=== PATIENT | male | born 1990 | race Caucasian/White ===

== ENCOUNTER 2020-10-26 01:24 | Emergency (ER) | payer OTHER ==
[2020-10-26 01:35] VITALS: RESP 18
--- NOTE | 2020-10-26 06:03 | ED ---
Overdose HPI - General Chief Complaint: Overdose Stated Complaint: Overdose Time Seen by Provider: 10/26/20 01:27 Source: patient, police, EMS Mode of arrival: EMS Limitations: no limitations - History of Present Illness Initial Comments: This patient is 22-year-old man who presents to have evaluation for axonal heroin overdose. Patient states that he was using tonight and must have taken too much heroin. Patient did have friend present who phoned EMS and also Narcan was given. The patient denies complaints now. Patient denies any depression or suicidal ideation. MD Complaint: accidental overdose -: minutes(s) Intent: other How Overdose Was Discovered: family/friend present at time Context: Accidental Overdose: wanted to get high - Related Data Allergies Allergy/AdvReac Type Severity Reaction Status Date / Time amoxicillin [From Augmentin] Allergy Unknown Verified 10/26/20 01:36 cefaclor [From Ceclor] Allergy Unknown Verified 10/26/20 01:36 clavulanic acid Allergy Unknown Verified 10/26/20 01:36 [From Augmentin] Review of Systems ROS Statement: Those systems with pertinent positive or pertinent negative responses have been documented in the HPI. ROS Other: All systems not noted in ROS Statement are negative. Constitutional: Denies: fever, chills Respiratory: Denies: cough, dyspnea Cardiovascular: Denies: chest pain, palpitations Gastrointestinal: Denies: abdominal pain, vomiting, diarrhea Musculoskeletal: Denies: back pain Skin: Denies: rash Neurological: Denies: headache, weakness, numbness Psychiatric: Denies: depression, suicidal thoughts Past Medical History Past Medical History: No Reported History History of Any Multi-Drug Resistant Organisms: None Reported Past Surgical History: No Surgical Hx Reported Past Psychological History: Anxiety Smoking Status: Current every day smoker, Vaper Past Alcohol Use History: None Reported Past Drug Use History: Heroin General Exam Limitations: no limitations General appearance: alert, in no apparent distress Head exam: Present: atraumatic, normocephalic Eye exam: Present: normal appearance. Absent: scleral icterus, conjunctival injection Respiratory exam: Present: normal lung sounds bilaterally. Absent: respiratory distress, wheezes, rales, rhonchi, stridor Cardiovascular Exam: Present: regular rate, normal rhythm, normal heart sounds. Absent: systolic murmur, diastolic murmur, rubs, gallop GI/Abdominal exam: Present: soft. Absent: distended, tenderness, guarding, rebound, rigid, mass Extremities exam: Present: normal inspection, normal capillary refill Neurological exam: Present: alert Psychiatric exam: Absent: depressed, suicidal ideation Skin exam: Present: warm, dry, intact, normal color. Absent: rash Course Vital Signs 10/26/20 10/26/20 10/26/20 01:27 02:00 04:47 Temperature 98 F Pulse Rate 80 75 Respiratory 18 18 Rate Blood Pressure 125/93 123/73 O2 Sat by Pulse 100 97 98 Oximetry Medical Decision Making - Medical Decision Making Patient is 30-year-old man here following accidental heroin overdose. He is observed until the Narcan has worn off. No further respiratory depression. Patient states she will be going home to his partner who can watch over him tonight. Disposition Clinical Impression: Opioid overdose Disposition: HOME SELF-CARE Condition: Good Instructions (If sedation given, give patient instructions): Adult Overdose (ED) Is patient prescribed a controlled substance at d/c from ED?: No Referrals: None,Stated [Primary Care Provider] - 1-2 days
[2020-10-26 06:42] VITALS: BP 127/80; PULSE 91; TEMP 97.8
== END 2020-10-26 06:35 | disposition home or self-care (01) ==
LOC: EC 01:24
DX: T40.1X1A Poisoning by heroin, accidental (unintentional), initial encounter (principal); F17.290 Nicotine dependence, other tobacco product, uncomplicated
CPT/HCPCS: 99284